=== PATIENT | female | born 1960 | race Two or more races ===

== ENCOUNTER 2024-05-02 12:31 | Emergency (ER) | payer MEDICAID ==
[~2024-05-02] VITALS: Ht 157.5 cm; Wt 48.5 kg
[2024-05-02 12:40] VITALS: TEMP 97.9
[2024-05-02] MEDS ORDERED: methylPREDNISolone SOD SUCC 125 MG/2ML VIAL ONE (12:46)
[2024-05-02] MEDS ORDERED: IPRATROPIUM NEB FS 0.5 MG/2.5 ML AMPUL.NEB ONE (12:51)
[2024-05-02] MEDS ORDERED: ALBUTEROL FS 2.5 MG/3 ML VIAL.NEB ONE (12:51)
[2024-05-02 12:56] LABS: BASOPHILS % (AUTO) 0.3 % (0.0-2.0); EOSINOPHILS # (AUTO) 0.2 K/uL (0.0-0.7); EOSINOPHILS % (AUTO) 1.4 % (0.0-6.0); HEMATOCRIT 42 % (33-45); HEMOGLOBIN 13.1 g/dL (11.5-14.8); LYMPHOCYTES # (AUTO) 1.2 K/uL (0.8-4.8); LYMPHOCYTES % (AUTO) 10.5 % (20.0-44.0); MEAN CORPUSCULAR HEMOGLOBIN 26 PG (26.0-33.0); MEAN CORPUSCULAR HGB CONC 31 g/dl (31.0-36.0); MEAN CORPUSCULAR VOLUME 83 fL (82-100); MONOCYTES # (AUTO) 0.9 K/uL (0.1-1.30); MONOCYTES % (AUTO) 7.4 % (2.0-12.0); NEUTROPHILS # (AUTO) 9.5 K/uL (1.8-8.9); NEUTROPHILS % (AUTO) 80.4 % (43.0-81.0); PLATELET COUNT (AUTO) 372 K/uL (150-450); RED BLOOD CELL COUNT(AUTO) 5.07 MIL/uL (4.0-5.2); RED CELL DISTRIBUTION WIDTH 24.5 % (11.5-15.0); WHITE BLOOD COUNT (AUTO) 11.8 K/uL (4.3-11.0)
[2024-05-02] MEDS: methylPREDNISolone SOD SUCC 125 MG/2ML VIAL IV ONE (12:56)
[2024-05-02 12:57] VITALS: O2SAT 94
[2024-05-02] MEDS ORDERED: Magnesium 1GM/D5W 100ML PREMIX 100 ML IV ONE ×2 (12:57→14:57)
[2024-05-02] MEDS: IPRATROPIUM NEB FS 0.5 MG/2.5 ML AMPUL.NEB NEB ONE (12:59)
[2024-05-02] MEDS: Magnesium 1GM/D5W 100ML PREMIX 200 ML IV ONE (13:00)
[2024-05-02] MEDS: ALBUTEROL FS 2.5 MG/3 ML VIAL.NEB NEB ONE (13:00)
[2024-05-02 13:07] LABS: CALCIUM, SERUM 10.2 mg/dL (8.5-10.1); CREATININE 0.4 mg/dL (0.6-1.3); POTASSIUM 4.3 mmol/L (3.5-5.1)
[2024-05-02 13:20] VITALS: O2SAT 95
[2024-05-02 13:55] VITALS: O2SAT 96
[2024-05-02] MEDS ORDERED: DOCU100C58 PO (17:19)
[2024-05-02] MEDS ORDERED: HYDR-3972 PO (17:19)
[2024-05-02] MEDS ORDERED: BUPR150T10 PO (17:19)
[2024-05-02] MEDS ORDERED: LEVA15HF6 IH (17:19)
[2024-05-02] MEDS ORDERED: LOSA50TA39 PO (17:19)
[2024-05-02] MEDS ORDERED: METO-357 PO (17:19)
[2024-05-02] MEDS ORDERED: CANA100T PO (17:19)
[2024-05-02] MEDS ORDERED: ASPI-1169 PO (17:19)
[2024-05-02] MEDS ORDERED: GLIM2TAB31 PO (17:19)
[2024-05-02] MEDS ORDERED: ATOR80TA PO (17:19)
[2024-05-02] MEDS ORDERED: GABA300C PO (17:19)
[2024-05-02] MEDS ORDERED: METF-442 PO (17:19)
[2024-05-02] MEDS ORDERED: OMEP40CA21 PO (17:19)
[2024-05-02] MEDS ORDERED: BECL10.62 IH (17:19)
[2024-05-02] MEDS ORDERED: IBUP-1955 PO (17:19)
[2024-05-02] MEDS ORDERED: TICA90TA PO (17:19)
[2024-05-02] MEDS ORDERED: MONT10TA22 PO (17:19)
[2024-05-02] MEDS ORDERED: IV NS 0.9% 250 ML IV ONE (19:30)
[2024-05-02 20:00] VITALS: BP 137/75; O2SAT 94
== END 2024-05-02 22:20 | disposition short-term general hospital (02) ==
LOC: ER 12:35
DX: J44.1 Chronic obstructive pulmonary disease with (acute) exacerbation (principal); I10 Essential (primary) hypertension; F17.200 Nicotine dependence, unspecified, uncomplicated; E11.9 Type 2 diabetes mellitus without complications; Z20.822 Contact with and (suspected) exposure to COVID-19
CPT/HCPCS: 99285; 96365; 71045; 96366; 96375; 87426; 93005; 82803; 85025; 80048; 36415; 36600; 94640 ×2; 94002; J2919; J3475 ×2